=== PATIENT | female | born 1975 | race Caucasian/White ===

== ENCOUNTER 2016-07-30 07:33 | Day surgery (SDC) | payer BC ==
[2016-07-22 15:31] LABS: HEMATOCRIT 38.8 % (36.0-48.0)
[2016-07-22 16:14] LABS: CALCIUM, SERUM 8.8 MG/DL (8.5-10.4); CHLORIDE, SERUM 102 MMOL/L (96-112); CREATININE 0.66 MG/DL (0.55-1.02); GFR AFRICAN AMERICAN 126 ML/MIN (>=60); GFR NON AFRICAN AMERICAN 109 ML/MIN (>=60); GLUCOSE, SERUM 83 MG/DL (60-99); SODIUM, SERUM 135 MMOL/L (135-148)
[2016-07-22 16:16] LABS: BUN (BLOOD UREA NITROGEN) 11 MG/DL (6-23); CO2 (CARBON DIOXIDE) 30 MMOL/L (24-34)
--- NOTE | ~2016-07-30 | OP ---
Record Of Operation [facility] [address] [place]. [address] NAME: DIAMANTE HERR : 71 STATUS : REG [facility] [place] PAT#: [id number] AGE: 40 ADM/REG DATE : 07/30/16 MR#: [id number] REPORT SERV DATE: 07/30/16 DICTATED BY: MELISSA TYLER DATE: 07/30/16 REPORT STATUS : Draft TRANSCRIBED BY: MODL DATE: 07/30/16 DATE OF PROCEDURE: 07/30/2016 PREOPERATIVE DIAGNOSIS: Calcified left level 2 lymph node with history of cat-scratch disease. POSTOPERATIVE DIAGNOSIS: Calcified left level 2 lymph node with history of cat-scratch disease. PROCEDURE PERFORMED: Deep cervical lymph node biopsy of left level 2. SURGEON: Melissa Tyler M.D. CART ATTENDANT: Krissy Rosario. ANESTHESIA: General. COMPLICATIONS: None. CONDITION: Stable to recovery. 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 She developed calcified left neck lymph node and dysphagia/foreign body sensation, and she elected to have this lymph node removed. FINDINGS: Densely calcified 2 cm left level 2 lymph node adjacent to the jugular vein but not adherent to it. Spinal accessory nerve was not identified or encountered during the dissection. PROCEDURE IN DETAIL: The patient was identified in preoperative holding, taken back to the operating room, and placed supine on the operating room table. General anesthesia was established. She was prepped and draped in a standard fashion for the operation. A time- out was called and the patient and procedure were confirmed. A preexisting skin crease in the anterior neck where the cat-scratch disease had previously been drain was infiltrated subcutaneously with 1% lidocaine with 1:100,000 epinephrine, a total of 5 mL. She was then prepped and draped for the operation. Using 2.5x loupe magnification and headlight illumination, the operation commenced. A 15 blade was used to make a skin incision down to platysma muscle. Subplatysmal flaps were elevated superiorly and inferiorly. The external jugular vein was encountered and ligated with 3-0 silk suture. This provided access to the deeper level 2 region where there was a firm calcified node adjacent to the jugular vein. It was dissected off the deep neck structures delicately. We did not encounter the spinal accessory nerve. The specimen was taken to the back table once removed and cut a small edge at the tip for cultures. The remainder of the node was sent for permanent pathology analysis. The wound was irrigated. Bipolar cautery was used for hemostasis and the wound was closed in layers using 3-0 Vicryl Record Of Operation [facility] [id number] [place]. [address] NAME: DIAMANTE HERR : 71 STATUS : REG [facility] [place] PAT#: [id number] AGE: 40 ADM/REG DATE : 07/30/16 MR#: [id number] REPORT SERV DATE: 07/30/16 DICTATED BY: MELISSA TYLER DATE: 07/30/16 REPORT STATUS : Draft TRANSCRIBED BY: MODL DATE: 07/30/16 and a 5-0 running Monocryl followed by Steri-Strips. PH/MODL Melissa Tyler M.D. / [id number] CC: Arcelia Stratton M.D.
[~2016-07-30 07:33] MED LIST: AMITIZA8 MCG PO; B COMPLETE PO; CARDIZEM LA120 MG PO; ESTRADIOL2 MG IM/SC; GOODY'S EX PO; HYZAAR 50/12.51 TAB PO; K-TABS10 MEQ PO; KLONO1 PO; MEVACOR PO; PERCOCET 10/3251 TAB PO; PROTONIX PO; SYN.05 PO; VENTOLIN HFA INH; VITD PO
== END 2016-07-30 16:04 | disposition home or self-care (01) ==
LOC: SDC 07:33
PROVIDERS: Specialist
PROC: 07B20ZX Excision of Left Neck Lymphatic, Open Approach, Diagnostic (ICD-10-PCS; principal; 2016-07-30 09:00)
DX: I89.8 Other specified noninfective disorders of lymphatic vessels and lymph nodes (principal); I48.91 Unspecified atrial fibrillation; I10 Essential (primary) hypertension; J45.909 Unspecified asthma, uncomplicated; E03.9 Hypothyroidism, unspecified; E89.0 Postprocedural hypothyroidism; Z88.0 Allergy status to penicillin; Z91.040 Latex allergy status; Z91.011 Allergy to milk products; Z79.899 Other long term (current) drug therapy; Z90.710 Acquired absence of both cervix and uterus; Z98.890 Other specified postprocedural states
CPT/HCPCS: 80048; 85014; 85018; 87015; 87070; 87075; 87102; 87116; 87205; 88305; 88311; 93005; A9270-GY; J2250; J2370; J2405; J2710; J3010